=== PATIENT | male | born 1995 | race Caucasian/White ===

== ENCOUNTER 2017-10-02 12:56 | Emergency (ER) | payer BC ==
[~2017-10-02] VITALS: Ht 193 cm; Wt 85.0 kg
[2017-10-02 13:46] LABS: DAU SCREEN DISCLAIMER
[2017-10-02] MEDS ORDERED: BACITRACIN ZINC OINT 500U/GM, 0.9 GM ONE (14:09)
[2017-10-02] MEDS ORDERED: ACETAMINOPHEN 500 MG TABLET ONE (17:20)
[2017-10-02] MEDS ORDERED: ACETAMINOPHEN 500 MG TABLET PO ONE (17:30)
== END 2017-10-02 21:10 | disposition home or self-care (01) ==
LOC: MERGE 21:00 → ED 21:00
DX: F43.0 Acute stress reaction (principal)
CPT/HCPCS: 80307; 99283; G0479